=== PATIENT | female | born 1960 | race Caucasian/White ===

== ENCOUNTER 2023-01-04 20:22 | Emergency (ER) | payer OTHER ==
[~2023-01-04] VITALS: Ht 170.2 cm; Wt 67.6 kg
[2023-01-04] MEDS ORDERED: MULTI-VITAMIN1 EACH PO (21:02)
[2023-01-04] MEDS ORDERED: PYRIDIUM200 MG PO (21:47)
[2023-01-04] MEDS ORDERED: CEPHALEXIN500 M1 PO (21:47)
== END 2023-01-04 22:03 | disposition home or self-care (01) ==
LOC: ED 20:22
DX: N30.91 Cystitis, unspecified with hematuria (principal)
CPT/HCPCS: 36415; 74177; 80053; 81001; 85025; 96374; 96375; 99284-25; A9270; J1885; J2405; Q9967

== ENCOUNTER 2023-03-06 07:32 | Emergency (ER) | payer MEDICARE ==
[~2023-03-06] VITALS: Ht 170.2 cm; Wt 67.6 kg
[~2023-03-06 07:32] MED LIST: CEPHALEXIN500 M1 PO; MULTI-VITAMIN1 EACH PO; PYRIDIUM200 MG PO
[2023-03-06] MEDS ORDERED: CEPHALEXIN500 M1 PO (08:46)
[2023-03-06 08:57] VITALS: BP 111/62
== END 2023-03-06 08:57 | disposition home or self-care (01) ==
LOC: ED 07:32
DX: L03.115 Cellulitis of right lower limb (principal); Z23 Encounter for immunization; Z79.899 Other long term (current) drug therapy
CPT/HCPCS: 73590; 90471; 90715; 93971; 99284-25; A9270